=== PATIENT | male | born 1955 | race Caucasian/White ===

== ENCOUNTER 2017-07-18 06:57 | Day surgery (SDC) | payer OTHER ==
[~2017-07-18 06:57] MED LIST: ASPIR-TRIN325 MG PO; CATOPRIL PO; CLONIDINE1 EAC1 TD; GLIMEPIRIDE4 MG PO; GLUMETZA1000 MG PO; INTESTINEX680 MG PO; LASIX PO; METROPROLOL PO; OXYC1TAB9 PO; PLAVIX75 MG PO; PROTONIX40 MG PO; ZANTAC300 MG PO; ZOCOR5 MG PO; [UNRECOGNIZED DRUG - OTHER] PO
== END 2017-07-18 13:55 | disposition home or self-care (01) ==
LOC: AMB-ENDOS 06:57
DX: D12.2 Benign neoplasm of ascending colon (principal); K64.8 Other hemorrhoids